=== PATIENT | female | born 1990 | race Hispanic/Latino ===

== ENCOUNTER 2018-02-22 14:19 | Outpatient (CLI) | payer OTHER ==
--- NOTE | 2018-02-22 16:21 | ULT ---
OB ULTRASOUND WITH UMBILICAL ARTERY DOPPLER 02/22/18 HISTORY: Gestational diabetes. COMPARISON: None available. FINDINGS: There is a single intrauterine gestation in cephalic presentation. The cardiac doppler demonstrates f etal heart tones with a heart rate of 144 beats per minute. The placenta is located in the fund us and anteriorly without evidence of placenta previa. Subjectively, there is diminished amniotic flu id volume and the amniotic fluid index is also decreased at 4.3 cm. Cervical length measures 2.97 cm. measurements: Biparietal diameter 8.22 cm 33 weeks Head circumference 30.26 cm 33 weeks 6 days Abdominal circumference 28.5 cm 32 weeks 4 days Femur length 6.35 cm 32 weeks 6 days The estimated gestational age by ultrasound is 33 weeks with VESNA on 04/12/18. Gestational age by the l ast menstrual period is 34 weeks and 3 days. The estimated weight by ultrasound is 2049 grams (4 lb. 8 oz.). This presents the 9th percentil e for weight. Four chambered heart, stomach, and urinary bladder are visualized and demonstrate a normal sonographi c appearance. Remainder of the anatomical structures are not well evaluated on this exam. There is suggestion of a three vessel cord. No definite anomalies are visualized on this exam. UMBILICAL ARTERY DOPPLER: Umbilical artery doppler evaluation with spectral analysis demonstrates peak systolic velocity of the umbilical artery. At the level of the cord insertion on the placenta: Peak systolic velocity 33.2 cm/s. End diastolic velocity 13.2 cm/s. Systolic to diastolic ratio if 2.52. Umbilical artery at the level of the cord insertion: Peak systolic velocity 39.5 cm/s. End diastolic velocity 16.6 cm/s. Systolic to diastolic ratio if 2.38. Mid umbilical artery: Peak systolic velocity 54.2 cm/s. End diastolic velocity 24.1 cm/s. Systolic to diastolic ratio if 2.25. IMPRESSION: 1. Oligohydramnios with amniotic fluid index of 4.3 cm. 2. Single intrauterine gestation in cephalic presentation with heart tones documented. 3. Estimated gestational age by ultrasound is 33 weeks with an VESNA on 04/12/18. 4. Estimated weight 2049 grams (4 lb. 8 oz.). 5. Findings concerning oligohydramnios were discussed with Dr. Juan Grewal's medical sales representative on 02/22/18 at 1531 hours. POS: [facility]
== END 2018-02-22 14:20 | disposition home or self-care (01) ==
LOC: ULT 14:19
PROVIDERS: ATTEND Family Medicine
DX: O24.410 Gestational diabetes mellitus in pregnancy, diet controlled (principal); O41.03X0 Oligohydramnios, third trimester, not applicable or unspecified; Z3A.33 33 weeks gestation of pregnancy
CPT/HCPCS: 76700; 76816

== ENCOUNTER 2018-03-26 15:39 | Inpatient (IN) | payer MEDICAID, OTHER, SELFPAY ==
[2018-03-27] MEDS ORDERED: Misoprostol 200 MCG TAB PR PRN (08:26)
[2018-03-27] MEDS ORDERED: Butorphanol Tartrate 1 MG/ML VIAL SLOW IVP PRN (08:26)
[2018-03-27] MEDS ORDERED: Penicillin G Potassium 5 MILL.UNITS in Sodium Chloride 0.9% 100 ML IVPB SCH (08:26)
[2018-03-27] MEDS ORDERED: Lidocaine 1% (PF) 30 ML VIAL SC PRN (08:26)
[2018-03-27] MEDS ORDERED: Promethazine HCl 25 MG/ML VIAL IM PRN (08:26)
[2018-03-27] MEDS ORDERED: HYDROcodone/Acetaminophen 5/325 mg Tablet PO PRN ×3 (08:26→21:24)
[2018-03-27] MEDS ORDERED: Ondansetron PF 4 MG/2 ML Vial IVP PRN ×2 (08:26→21:24)
[2018-03-27] MEDS ORDERED: Ibuprofen 800 MG TAB PO PRN (08:26)
[2018-03-27] MEDS ORDERED: Carboprost 250 MCG/ML AMP IM PRN (08:26)
[2018-03-27] MEDS ORDERED: Methylergonovine 0.2 MG/ML VIAL IM PRN (08:26)
[2018-03-27] MEDS ORDERED: NS w/ Oxytocin 10 units 500 ML IV SCH ×2 (08:26)
[2018-03-27] MEDS ORDERED: Diphenoxylate HCl/Atropine Tablet PO PRN (08:26)
[2018-03-27 08:27] VITALS: BMI 38.1
[2018-03-27] MEDS: Lactated Ringer's 1,000 ML IV SCH ×2 (08:49→16:03)
[2018-03-27] MEDS ORDERED: Penicillin G Potassium 5 MILL.UNITS VIAL ONE (08:58)
[2018-03-27] MEDS: Misoprostol 100 MCG TAB PO SCH ×3 (09:33→17:40)
[2018-03-27 09:59] LABS: Hemoglobin 12.4 g/dL (12.0-16.0); Mean Corpuscular HGB CONC 32.2 g/dL (32.0-36.0); Mean Corpuscular Hemoglobin 25.2 pg (27.0-31.0); Mean Corpuscular Volume 78.3 fL (78.0-98.0); Mean Platelet Volume 10.1 fL (7.4-10.4); Platelet Count 209 thou/uL (130-400); RBC Distribution Width 14.3 % (11.5-14.5); Red Blood Cell (RBC) Count 4.92 mill/uL (4.20-5.40); White Blood Cell (WBC) Count 8.4 thou/uL (4.8-10.8)
[2018-03-27 10:16] LABS: HBSAg Index 0.19 S/CO (0-0.99); Hep B Surf Ag Non-Reactive S/CO (NonReactive); Syphilis Antibody Nonreactive (Nonreactive); Syphilis Antibody Index 0.05 S/CO (<1.00 Non-Reactive)
[2018-03-27] MEDS: Penicillin G 2.5 MILL.units 2.5 MILL.UNITS in Premix Bag 1 BAG IVPB SCH ×3 (13:36→22:53)
[2018-03-27] MEDS: NS / Oxytocin 40 units/1000ml 1,000 ML IV PRN ×2 (18:20→19:47)
[2018-03-27] MEDS ORDERED: NS / Oxytocin 40 units/1000ml 1,000 ML IV SCH (21:24)
[2018-03-27] MEDS ORDERED: Milk Of Magnesia 30 ML UDCUP PO PRN (21:24)
[2018-03-27] MEDS ORDERED: Bisacodyl 10 MG SUPP PR PRN (21:24)
[2018-03-27] MEDS ORDERED: Benzocaine/Menthol 20-0.5% 60 ML CAN TOP PRN (21:24)
[2018-03-27] MEDS: Ibuprofen 800 MG TAB PO SCH (21:54)
[2018-03-28 06:19] LABS: Hemoglobin 10.9 g/dL (12.0-16.0); Mean Corpuscular HGB CONC 31.7 g/dL (32.0-36.0); Mean Corpuscular Hemoglobin 25.1 pg (27.0-31.0); Mean Corpuscular Volume 79.3 fL (78.0-98.0); Mean Platelet Volume 9.9 fL (7.4-10.4); Platelet Count 208 thou/uL (130-400); RBC Distribution Width 14.1 % (11.5-14.5); Red Blood Cell (RBC) Count 4.35 mill/uL (4.20-5.40); White Blood Cell (WBC) Count 12.1 thou/uL (4.8-10.8)
[2018-03-28] MEDS: Ibuprofen 800 MG TAB PO SCH ×2 (06:24→13:44)
[2018-03-28] MEDS ORDERED: Docusate Calcium (SURFAK) 240 MG CAP PO SCH (09:00)
[2018-03-28] MEDS ORDERED: Prenatal Vitamin 1 TAB PO SCH (09:00)
[2018-03-28] MEDS: Ferrous Sulfate 325 MG TAB PO SCH ×2 (10:43→16:46)
[2018-03-28 20:50] VITALS: BP 129/77; TEMP 98
== END 2018-03-28 20:43 | disposition home or self-care (01) | DRG 807 ==
LOC: L&D 03-27 07:49 → 3SE 03-27 23:27
PROVIDERS: ADMIT Family Medicine; ATTEND Family Medicine
PROC: 10E0XZZ Delivery of Products of Conception, External Approach (ICD-10-PCS; principal; 2018-03-27)
PROC: 0KQM0ZZ Repair Perineum Muscle, Open Approach (ICD-10-PCS; 2018-03-27)
PROC: 10907ZC Drainage of Amniotic Fluid, Therapeutic from Products of Conception, Via Natural or Artificial Opening (ICD-10-PCS; 2018-03-27)
DX: O24.420 Gestational diabetes mellitus in childbirth, diet controlled (principal); Z37.0 Single live birth; Z3A.38 38 weeks gestation of pregnancy; O70.1 Second degree perineal laceration during delivery; O99.824 Streptococcus B carrier state complicating childbirth; O69.81X0 Labor and delivery complicated by cord around neck, without compression, not applicable or unspecified
CPT/HCPCS: 36415; 36416; 85027; 86780; 86850; 86900; 86901; 87340; J2001; J2540